=== PATIENT | male | born 1990 | race Caucasian/White ===

== ENCOUNTER 2019-07-12 21:10 | Emergency (ER) | payer OTHER ==
[~2019-07-12] VITALS: Ht 170.2 cm; Wt 98.4 kg
[2019-07-12 21:16] VITALS: BP 143/95
--- NOTE | 2019-07-12 21:19 | NUR ---
PT TAKEN TO BED 8
--- NOTE | 2019-07-12 21:26 | NUR ---
Dr. Galeas examining patient.
--- NOTE | 2019-07-12 21:28 | NUR ---
PT C/O RED RASH ON LOWER LUMBAR REGION X2 WEEKS. DENIES ITCHING. 8/10 BURNING PAIN. PT DENIES DISCHARGE FROM RASH. NO CHANGE IN DETERGENT/SOAP. PT DENIES FEVER. DENIES SOB. RR EVEN AND UNLABORED. PT IN ROOM WITH AT BEDSIDE. CALM AND PLEASANT. MEDHX: DENIES ALLERGIES: DENIES
[2019-07-12] MEDS ORDERED: MORPHINE SULFATE 2 MG/ML SYR IM ONE (21:35)
--- NOTE | 2019-07-12 21:53 | NUR ---
Patient discharged with v/s stable. Written and verbal after care instructions given and explained. Patient alert, oriented and verbalized understanding of instructions. Ambulatory with to home. All questions addressed prior to discharge. ID band removed. Patient advised to follow up with PMD. Rx of ACYCLOVIR, NORCO, MOTRIN, ZOVIRAX given. Patient educated on indication of medication including possible reaction and side effects. Opportunity to ask questions provided and answered.
[2019-07-12 21:54] VITALS: BP 143/95
== END 2019-07-12 21:53 | disposition home or self-care (01) ==
LOC: MED 21:10
DX: B02.9 Zoster without complications (principal); K21.9 Gastro-esophageal reflux disease without esophagitis
CPT/HCPCS: 96372; 99283; J2270